=== PATIENT | male | born 2000 | race Hispanic/Latino ===

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

== ENCOUNTER 2020-10-23 21:10 | Emergency (ER) | payer OTHER ==
[~2020-10-23 21:10] MED LIST changes: +MOTRIN400 MG PO
[2020-10-24 00:49] VITALS: BP 130/75
== END 2020-10-24 00:49 | disposition home or self-care (01) | DRG 605 ==
LOC: ED 21:10
DX: S60.111A Contusion of right thumb with damage to nail, initial encounter (principal); W23.0XXA Caught, crushed, jammed, or pinched between moving objects, initial encounter; Y99.0 Civilian activity done for income or pay